=== PATIENT | female | born 1995 ===

== ENCOUNTER → 2021-01-23 14:05 | Outpatient (CLI) | payer BC, SELFPAY ==
[2021-01-23 15:36] LABS: Basophils % 0.5 % (0.1-2.0); Eosinophils # 0.2 K/mm3 (0.0-0.4); Eosinophils % 3.4 % (0.1-12.0); Hematocrit 36.5 % (37.0-47.0); Hemoglobin 12.7 g/dL (12.2-16.2); Lymphocytes # 1.6 K/mm3 (0.7-4.5); Lymphocytes % 29.3 % (10-50); Mean Corpuscular HGB Conc 34.8 g/dL (31.8-35.4); Mean Corpuscular Hemoglobin 31.4 pg (27.0-31.2); Mean Corpuscular Volume 90.2 fl (81-99); Mean Platelet Volume 8.3 fl (7.4-10.4); Monocytes # 0.2 K/mm3 (0.1-1.0); Monocytes % 4.1 % (1.7-9.3); Neutrophils # 3.4 K/mm3 (1.8-7.8); Neutrophils % 62.7 % (37.0-80.0); Platelet Count 330 K/mm3 (142-424); Red Blood Count 4.05 M/mm3 (4.20-5.40); Red Cell Distribution Width 12.5 % (11.5-17.5); White Blood Count 5.5 K/mm3 (4.8-10.8)
[2021-01-23 16:55] LABS: Iron 84 ug/dL (37-170)
[2021-01-23 17:05] LABS: Total Iron Binding Capacity 388 ug/dL (265-497)
== END ==
PROVIDERS: Visit Provider Internal Medicine
DX: D50.9 Iron deficiency anemia, unspecified (principal); D64.9 Anemia, unspecified; F41.9 Anxiety disorder, unspecified; F51.02 Adjustment insomnia; Q79.60 Ehlers-Danlos syndrome, unspecified
CPT/HCPCS: 83540; 83550; 85025

== ENCOUNTER → 2021-02-27 10:16 | Outpatient (CLI) | payer BC, SELFPAY | PROVIDERS: Visit Provider Nurse Practitioner | DX: U07.1 COVID-19 (principal) | CPT/HCPCS: C9803; U0003; U0005 ==

== ENCOUNTER → 2021-04-19 12:13 | Outpatient (CLI) | payer BC, SELFPAY ==
[2021-04-19 13:41] LABS: Hemoglobin A1C 4.7 % (4.0-6.0)
[2021-04-19 14:35] LABS: Chloride 102 mmol/L (98-107); Sodium 133 mmol/L (136-145)
[2021-04-19 14:36] LABS: Potassium 4.4 mmoL/L (3.5-5.1)
[2021-04-19 14:38] LABS: Alanine Aminotransferase 39 U/L (12-78); Alkaline Phosphatase 75 U/L (38-126); Aspartate Amino Transferase 51 U/L (14-36); Bilirubin,Total 0.3 mg/dl (0.2-1.3); Blood Urea Nitrogen 7 mg/dl (7-17); Estimated Glomerular Filt Rate 148 ml/min (>60); GFR (African American) 179 ML/MIN (>60)
[2021-04-19 14:39] LABS: Albumin Level 4.6 g/dl (3.5-5.0); Albumin/Globulin Ratio 1.9 (1.1-1.8); Anion Gap 13.4 mEq/L (5-15); Calcium 8.5 mg/dl (8.4-10.2); Carbon Dioxide 22 mmol/L (22.0-30.0); Globulin 2.4 g/dL (1.3-3.2); Glucose 74 mg/dl (74-100)
[2021-04-19 15:09] LABS: Thyroid Stimulating Hormone 1.44 uIU/mL (0.465-4.68)
== END ==
PROVIDERS: Visit Provider Internal Medicine
DX: R53.83 Other fatigue (principal); D50.0 Iron deficiency anemia secondary to blood loss (chronic); E16.2 Hypoglycemia, unspecified; K59.00 Constipation, unspecified; Q79.60 Ehlers-Danlos syndrome, unspecified; F51.02 Adjustment insomnia
CPT/HCPCS: 80053; 83036; 84443